=== PATIENT | female | born 1985 ===

== ENCOUNTER 2024-05-11 05:09 | Day surgery (SDC) | payer OTHER ==
[2024-05-07 11:44] LABS: HEMATOCRIT 37.2 % (36.0-45.00); HEMOGLOBIN 12.3 g/dL (12.0-15.00); MEAN CELL VOLUME 84.4 fL (80.00-100.00); MEAN CORPUSCULAR HEMOGLOBIN 27.8 pg (27.00-32.0); PLATELET COUNT 318 K/uL (150-450); RED BLOOD COUNT 4.41 M/uL (4.00-6.00); RED CELL DISTRIBUTION WIDTH 15.7 % (11.5-14.5)
[2024-05-07 12:02] LABS: URINE APPEARANCE Clear; URINE BILIRRUBIN Negative (NEGATIVE); URINE BLOOD Negative; URINE COLOR Yellow; URINE GLUCOSE Negative (NEGATIVE); URINE KETONE Negative (NEGATIVE); URINE LEUKOCYTE Moderate; URINE NITRATE Negative; URINE PROTEIN Negative (NEGATIVE); URINE UROBILINOGEN 0.2 E.U./dl
[2024-05-07 12:03] LABS: PARTIAL THROMBOPLASTIN TIME 34.3 SECONDS (22.0-34.0); PROTHROMBIN TIME 10.9 SECONDS (9.0-11.5)
[2024-05-07 12:06] LABS: URINE EPITHELIAL CELLS 40.6 uL (0.0-38.8); URINE WBC 56.6 uL (0.0-23.2)
[2024-05-07 12:08] LABS: URINE CAST 0.29 uL (0.0-1.40)
[2024-05-07 12:40] LABS: ALBUMIN 3.9 gm/dL (3.4-5.0); BILIRUBIN TOTAL 0.41 mg/dL (0.3-1.2); CALCIUM 9.1 mg/dL (8.5-10.1); CREATININE SERUM 0.81 mg/dL (0.55-1.02); GFR 79.13; GLOBULINA 3.6 G/DL (2.4-3.5); POTASSIUM 4.29 mEq/L (3.5-5.1); TOTAL PROTEIN 7.5 gm/dL (6.4-8.2)
[2024-05-07 12:58] VITALS: BP 127/80
[~2024-05-11] VITALS: Ht 160 cm; Wt 78.9 kg
[2024-05-11] MEDS ORDERED: CHLORHEXIDINE GLUCONATE 240 ML BOTTLE TOP ONE (08:00)
[2024-05-11] MEDS ORDERED: ONDANSETRON HCL 2 MG/ML VIAL IV ONE (08:00)
== END 2024-05-11 13:40 | disposition home or self-care (01) ==
LOC: CIR.AMB 05:09
PROVIDERS: ATTEND Obstetrics & Gynecology
DX: N84.0 Polyp of corpus uteri (principal); N93.8 Other specified abnormal uterine and vaginal bleeding; Z91.013 Allergy to seafood